=== PATIENT | male | born 1955 | race Two or more races ===

== ENCOUNTER 2016-07-29 14:44 | Inpatient (IN) | payer OTHER ==
[~2016-07-29] VITALS: Ht 170.2 cm; Wt 56.7 kg
[~2016-07-29 14:44] MED LIST: AMIO100T3 PO; APIX2.5T PO; B-CO-9 PO; CALC667C PO; CHOL20007 PO; CINA30TA2 PO; CLON0.1T PO; FUR40T PO; LOS50T PO; MET50T PO; OMEP20CA5 PO; Pantoprazole Sodium Sesquihydr PO; SEVE800T8 PO; SUCR1TAB PO
[2016-07-29] MEDS ORDERED: FUROSEMIDE 40 MG/4 ML VIAL IV ONE (16:00)
[2016-07-29] MEDS ORDERED: ASPirin 81 mg TAB PO ONE (16:00)
[2016-07-29] MEDS ORDERED: DILTIAZEM HCL 25 MG/5 ML VIAL IV ONE (16:00)
[2016-07-29] MEDS ORDERED: MORPHINE SULF INJ 2 MG/ML SYRINGE 1ML IV ONE (16:00)
[2016-07-29 17:08] LABS: Basophils # (auto) 0.1 uL; Basophils % (auto) 0.7 % (0.0-2.0); Eosinophils # (auto) 0.2 uL; Eosinophils % (auto) 1.8 % (0.0-7.0); Hematocrit 38.5 % (41.0-53.0); Hemoglobin 12.6 g/dL (13.5-17.5); Lymphocytes # (auto) 1.2 uL; Lymphocytes % (auto) 11.1 % (10.0-50.0); Mean Corpuscular Hgb Conc. 32.7 g/dL (32.0-36.0); Mean Corpuscular Volume 91.6 fL (80.0-100.0); Mean Platelet Volume 9.3 fL (7.4-10.4); Monocytes # (auto) 0.9 uL; Monocytes % (auto) 8.6 % (0.0-12.0); Neutrophils # (auto) 8.4 uL; Neutrophils % (auto) 77.8 % (37.0-80.0); Platelet Count (auto) 190 10^3/uL (140-450); White Blood Cell 10.7 10^3/uL (4.4-10.8)
[2016-07-29 17:21] LABS: BUN/Creatinine Ratio 9.8; Bilirubin, Total 0.5 mg/dL (0.2-1.0); Calcium 8.5 mg/dL (8.5-10.1); Potassium 4.4 mmol/L (3.5-5.1); Total Protein 6.8 g/dL (6.4-8.2)
[2016-07-29 17:26] LABS: INR 1.11 (0.9-1.15); Partial Thromboplastin Time 28.8 sec (22.64-33.71)
[2016-07-29 18:54] LABS: B-Type Natriuretic Peptide 579.37 pg/mL (0-100); Temperature: 24.5 C (20.0-25.0)
[2016-07-29] MEDS ORDERED: LABETALOL HCL 5 MG/ML 4ML SYRINGE IV ONE (21:30)
[2016-07-29] MEDS ORDERED: CARV3.1240 PO (22:25)
[2016-07-29] MEDS ORDERED: DILT240C PO (22:25)
[2016-07-29] MEDS ORDERED: DOCUSATE SOD 100 MG CAP PO PRN (22:30)
[2016-07-29] MEDS ORDERED: NITROGLYCERIN 0.4 MG SL TAB SL PRN (22:30)
[2016-07-29] MEDS ORDERED: ACETAMINOPHEN 325 MG TAB PO PRN (22:30)
[2016-07-29] MEDS ORDERED: MORPHINE SULF INJ 2 MG/ML SYRINGE 1ML IV PRN (22:30)
[2016-07-29] MEDS ORDERED: AMIODARONE HCL 200 MG TAB PO ONE (22:30)
[2016-07-29] MEDS ORDERED: DEXTROSE (50%) 50ML SYRG IV PRN (22:30)
[2016-07-29] MEDS ORDERED: METOPROLOL TARTRATE 50 MG TAB PO ONE (22:30)
[2016-07-29] MEDS ORDERED: ONDANSETRON HCL 4 MG/2 ML VIAL IV PRN (22:30)
[2016-07-29] MEDS: APIXABAN 2.5 MG TAB PO SCH (23:00)
[2016-07-29] MEDS: cloNIDine HCL 0.1 MG TAB PO SCH (23:01)
[2016-07-29] MEDS: PANTOPRAZOLE 40 MG TAB PO SCH (23:02)
[2016-07-29 23:52] VITALS: BP 136/73
[2016-07-30] MEDS: ACCU-CHEK COMFORT CURVE STRIP VI SCH ×4 (00:05→17:42)
[2016-07-30 01:34] VITALS: BP 136/73
[2016-07-30 05:37] VITALS: BP 118/76
[2016-07-30] MEDS: InsuLIN REG 1unit/0.01ml Soln (100units/ml) SC SCH ×4 (06:00→17:43)
[2016-07-30 06:03] LABS: Basophils # (auto) 0 uL; Basophils % (auto) 0.3 % (0.0-2.0); Eosinophils # (auto) 0.2 uL; Eosinophils % (auto) 2.3 % (0.0-7.0); Hematocrit 35.7 % (41.0-53.0); Hemoglobin 11.5 g/dL (13.5-17.5); Lymphocytes # (auto) 1.4 uL; Lymphocytes % (auto) 14.5 % (10.0-50.0); Mean Corpuscular Hemoglobin 29.9 pg (28.0-32.0); Mean Corpuscular Hgb Conc. 32.3 g/dL (32.0-36.0); Mean Corpuscular Volume 92.8 fL (80.0-100.0); Mean Platelet Volume 9.5 fL (7.4-10.4); Monocytes # (auto) 0.9 uL; Monocytes % (auto) 9.4 % (0.0-12.0); Neutrophils # (auto) 7.3 uL; Neutrophils % (auto) 73.5 % (37.0-80.0); Platelet Count (auto) 178 10^3/uL (140-450); Red Cell Distribution Width 16.9 % (11.6-16.0); White Blood Cell 9.9 10^3/uL (4.4-10.8)
[2016-07-30 06:23] LABS: Albumin 2.8 g/dL (3.4-5.0); Calcium 8.2 mg/dL (8.5-10.1); Potassium 4.6 mmol/L (3.5-5.1)
[2016-07-30 06:26] LABS: BUN/Creatinine Ratio 10.1
[2016-07-30 06:29] LABS: Bilirubin, Total 0.5 mg/dL (0.2-1.0); Total Protein 6.1 g/dL (6.4-8.2)
[2016-07-30] MEDS: SEVELAMER 800 MG TAB PO SCH ×3 (08:28→17:42)
[2016-07-30] MEDS: CALCIUM ACETATE 667 MG CAP PO SCH ×3 (08:28→17:42)
[2016-07-30] MEDS: HYDROcodone-ACET 5/325MG TAB PO PRN ×2 (08:32→20:57)
[2016-07-30 09:00] VITALS: BP 117/76
[2016-07-30] MEDS: APIXABAN 2.5 MG TAB PO SCH ×2 (09:46→20:58)
[2016-07-30] MEDS: ASPirin 81 mg TAB PO SCH (09:47)
[2016-07-30] MEDS: PANTOPRAZOLE 40 MG TAB PO SCH ×2 (09:47→20:58)
[2016-07-30] MEDS: cloNIDine HCL 0.1 MG TAB PO SCH ×2 (09:47→22:00)
[2016-07-30] MEDS: LOSARTAN POTASSIUM 50 MG TAB PO SCH (09:48)
[2016-07-30] MEDS ORDERED: METOPROLOL TARTRATE 50 MG TAB PO SCH ×2 (10:00→22:00)
[2016-07-30] MEDS ORDERED: AMIODARONE HCL 200 MG TAB PO SCH (10:00)
[2016-07-30 13:00] VITALS: BP 110/69
[2016-07-30] MEDS ORDERED: FUROSEMIDE 40 MG/4 ML VIAL IV ONE (15:45)
[2016-07-30 17:30] VITALS: BP 106/65
[2016-07-30 21:30] VITALS: BP 106/60
[2016-07-30] MEDS: METOPROLOL TARTRATE 50 MG TAB PO SCH (22:00)
[2016-07-31 04:30] VITALS: BP 126/77
[2016-07-31] MEDS: InsuLIN REG 1unit/0.01ml Soln (100units/ml) SC SCH ×4 (04:53→17:54)
[2016-07-31] MEDS: ACCU-CHEK COMFORT CURVE STRIP VI SCH ×5 (04:53→23:59)
[2016-07-31] MEDS: HYDROcodone-ACET 5/325MG TAB PO PRN ×2 (05:02→17:58)
[2016-07-31 06:07] LABS: BUN/Creatinine Ratio 11.5; Calcium 8.5 mg/dL (8.5-10.1); Potassium 5.1 mmol/L (3.5-5.1)
[2016-07-31 09:00] VITALS: BP 123/76
[2016-07-31] MEDS ORDERED: SODIUM CHL 0.9% 1000 ML BAG XX ONE (09:00)
[2016-07-31] MEDS: SEVELAMER 800 MG TAB PO SCH ×3 (09:21→17:54)
[2016-07-31] MEDS: CALCIUM ACETATE 667 MG CAP PO SCH ×3 (09:21→17:54)
[2016-07-31] MEDS: ASPirin 81 mg TAB PO SCH (10:29)
[2016-07-31] MEDS: APIXABAN 2.5 MG TAB PO SCH ×2 (10:29→22:05)
[2016-07-31] MEDS: PANTOPRAZOLE 40 MG TAB PO SCH ×2 (10:30→22:06)
[2016-07-31] MEDS: LOSARTAN POTASSIUM 50 MG TAB PO SCH (10:30)
[2016-07-31] MEDS: cloNIDine HCL 0.1 MG TAB PO SCH ×2 (10:30→22:05)
[2016-07-31] MEDS: METOPROLOL TARTRATE 50 MG TAB PO SCH ×2 (10:34→22:06)
[2016-07-31 13:00] VITALS: BP 138/75
[2016-07-31 13:15] VITALS: BP 127/76
[2016-07-31 16:25] VITALS: BP 118/67
[2016-07-31] MEDS ORDERED: traMADol HCL 50 MG TAB PO PRN (18:30)
[2016-07-31 21:28] VITALS: BP 120/67
[2016-08-01] VITALS (7 sets, daily range): BP systolic 104–139; BP diastolic 56–86
[2016-08-01] MEDS: ACCU-CHEK COMFORT CURVE STRIP VI SCH ×3 (05:46→18:00)
[2016-08-01] MEDS: InsuLIN REG 1unit/0.01ml Soln (100units/ml) SC SCH ×4 (05:48→18:00)
[2016-08-01] MEDS: CALCIUM ACETATE 667 MG CAP PO SCH ×3 (09:12→17:53)
[2016-08-01] MEDS: SEVELAMER 800 MG TAB PO SCH ×2 (09:13→17:52)
[2016-08-01] MEDS: LOSARTAN POTASSIUM 50 MG TAB PO SCH (10:00)
[2016-08-01] MEDS: cloNIDine HCL 0.1 MG TAB PO SCH ×2 (10:00→21:43)
[2016-08-01] MEDS: PANTOPRAZOLE 40 MG TAB PO SCH ×2 (10:31→21:44)
[2016-08-01] MEDS: ASPirin 81 mg TAB PO SCH (10:31)
[2016-08-01] MEDS: APIXABAN 2.5 MG TAB PO SCH ×2 (10:32→21:44)
[2016-08-01] MEDS: METOPROLOL TARTRATE 50 MG TAB PO SCH ×2 (10:37→21:43)
[2016-08-01] MEDS: HYDROcodone-ACET 5/325MG TAB PO PRN ×2 (10:43→21:48)
[2016-08-01] MEDS ORDERED: SODIUM CHL 0.9% 1000 ML BAG XX ONE (13:30)
[2016-08-02] MEDS: ACCU-CHEK COMFORT CURVE STRIP VI SCH ×4 (00:09→17:40)
[2016-08-02 05:00] VITALS: BP 126/63
[2016-08-02] MEDS: InsuLIN REG 1unit/0.01ml Soln (100units/ml) SC SCH ×4 (05:44→17:40)
[2016-08-02] MEDS: CALCIUM ACETATE 667 MG CAP PO SCH ×3 (07:42→17:45)
[2016-08-02] MEDS: SEVELAMER 800 MG TAB PO SCH ×3 (07:42→17:45)
[2016-08-02 09:00] VITALS: BP 106/65
[2016-08-02] MEDS: ASPirin 81 mg TAB PO SCH (10:00)
[2016-08-02] MEDS: PANTOPRAZOLE 40 MG TAB PO SCH (10:00)
[2016-08-02] MEDS: LOSARTAN POTASSIUM 50 MG TAB PO SCH (10:00)
[2016-08-02] MEDS: APIXABAN 2.5 MG TAB PO SCH (10:00)
[2016-08-02] MEDS: cloNIDine HCL 0.1 MG TAB PO SCH (10:00)
[2016-08-02] MEDS: METOPROLOL TARTRATE 50 MG TAB PO SCH (10:00)
[2016-08-02 11:30] VITALS: BP 112/60
[2016-08-02 13:00] VITALS: BP 138/57
[2016-08-02 16:44] VITALS: BP 128/67
[2016-08-02] MEDS: HYDROcodone-ACET 5/325MG TAB PO PRN (20:20)
== END 2016-08-02 21:50 | disposition home or self-care (01) | DRG 194 ==
LOC: EDBD 14:44 → ER 14:51 → TELE 14:52 → TELE-WESTW 23:21
PROVIDERS: ADMIT Internal Medicine; ATTEND Internal Medicine Pulmonary Disease
PROC: 5A1D60Z (ICD-10-PCS; principal; 2016-07-29)
DX: I50.33 Acute on chronic diastolic (congestive) heart failure (principal); N18.6 End stage renal disease; E11.22 Type 2 diabetes mellitus with diabetic chronic kidney disease; D68.69 Other thrombophilia; E11.51 Type 2 diabetes mellitus with diabetic peripheral angiopathy without gangrene; I48.0 Paroxysmal atrial fibrillation; I48.92 Unspecified atrial flutter; I13.2 Hypertensive heart and chronic kidney disease with heart failure and with stage 5 chronic kidney disease, or end stage renal disease; E78.5 Hyperlipidemia, unspecified; K21.9 Gastro-esophageal reflux disease without esophagitis; I25.10 Atherosclerotic heart disease of native coronary artery without angina pectoris; M75.101 Unspecified rotator cuff tear or rupture of right shoulder, not specified as traumatic; M25.811 Other specified joint disorders, right shoulder; D63.8 Anemia in other chronic diseases classified elsewhere; I25.2 Old myocardial infarction; Z79.899 Other long term (current) drug therapy; Z89.519 Acquired absence of unspecified leg below knee; Z79.82 Long term (current) use of aspirin; Z84.89 Family history of other specified conditions; Z99.2 Dependence on renal dialysis; Z79.01 Long term (current) use of anticoagulants; Z82.49 Family history of ischemic heart disease and other diseases of the circulatory system; Z87.891 Personal history of nicotine dependence; Z83.3 Family history of diabetes mellitus; Z89.511 Acquired absence of right leg below knee
CPT/HCPCS: 36415; 71020; 73030; 80048; 80053; 82962; 83735; 83880; 84443; 84484; 85025; 85379; 85610; 85730; 87081; 90935; 93005; 93930; 96374; 96375; 99291; J1642; J1815; J3490

== ENCOUNTER 2016-10-09 16:45 | Emergency (ER) | payer OTHER ==
[~2016-10-09] VITALS: Ht 170.2 cm; Wt 63.5 kg
[~2016-10-09 16:45] MED LIST changes: +CARV3.1240 PO; +DILT240C PO; -OMEP20CA5 PO; +OMEP20CA74 PO; -SEVE800T8 PO
[2016-10-09 17:20] VITALS: BP 150/115
== END 2016-10-10 05:00 | disposition left against medical advice (07) ==
LOC: EDSEX 16:45 → EDBD 16:45 → ER 16:58
DX: M25.511 Pain in right shoulder (principal); Z53.21 Procedure and treatment not carried out due to patient leaving prior to being seen by health care provider; W06.XXXA Fall from bed, initial encounter; Y93.89 Activity, other specified; Y99.8 Other external cause status; Y92.89 Other specified places as the place of occurrence of the external cause
CPT/HCPCS: 73030